=== PATIENT | female | born 1935 | race Caucasian/White ===

== ENCOUNTER 2017-11-21 09:12 | Outpatient (CLI) | payer MEDICARE, BC ==
--- NOTE | 2017-11-21 11:00 | CT ---
CHEST CT SCAN WITH IV CONTRAST: Date: 11/21/17 HISTORY: 82-year-old female with follow-up pulmonary nodule. History of breast cancer and prior left mastectom y. COMPARISON: 10/31/16. FINDINGS: Status post left mastectomy changes. No mediastinal mass or adenopathy. Prominent left hemithorax and pleural calcifications. Right upper lobe pulmonary nodule measuring 0.8 x 1.0 cm, which is stable fr om the 10/31/16 study, but has increased in size when compared to the 05/04/14 study, at which time i t was approximately 0.5 x 0.6 cm. The left lower lobe pulmonary nodule measures 1.4 x 1.7 cm with lit tle change from the prior study, at which time it measured approximately 1.3 x 1.6 cm, but it is also increased in size when compared to the prior 05/04/14 study, at which time it was 0.9 x 1.2 cm. Smal l to moderate size hiatal hernia. Other scattered stable chronic lung changes. IMPRESSION: Right upper lobe and left lower lobe pulmonary nodules with very little change from the 10/31/16 stud y, but with definite increase in size when dating back to 05/04/14. Left-sided pleural calcifications . Status post left mastectomy. Small to moderate hiatal hernia. POS: MICHAEL
[2017-11-21] MEDS ORDERED: Iopamidol 370 76% 100 ML VIAL ONE (15:41)
== END 2017-11-21 09:13 | disposition home or self-care (01) ==
LOC: CT 09:12
PROVIDERS: ATTEND Internal Medicine
DX: R91.1 Solitary pulmonary nodule (principal); R91.8 Other nonspecific abnormal finding of lung field; K44.9 Diaphragmatic hernia without obstruction or gangrene
CPT/HCPCS: 71260

== ENCOUNTER 2018-03-25 13:04 | Outpatient (CLI) | payer MEDICARE, BC ==
--- NOTE | 2018-03-27 14:23 | MMO ---
RIGHT BREAST SCREENING MAMMOGRAM: INDICATION: History of left-sided mastectomy and right-sided breast reduction. COMPARISON: Prior exam dated 02/01/16. FINDINGS: The interpretation of this exam was assisted with computer-aided detection. The breast parenchyma is heterogeneously dense. There is a surgical clip within the right breast whi ch is stable. There are scattered benign-appearing calcifications. No suspicious mass, cluster of m icrocalcifications, or area of architectural distortion is evident. IMPRESSION: BI-RADS category 2 - benign. Recommend routine annual mammographic screening. BIRADS 2: Benign Finding(s) Routine annual screening mammography (for women over age 40) POS: COLBY
== END 2018-03-25 13:05 | disposition home or self-care (01) ==
LOC: SCSMAMMO 13:04
PROVIDERS: ATTEND Family Medicine
DX: Z12.31 Encounter for screening mammogram for malignant neoplasm of breast (principal)
CPT/HCPCS: 77067

== ENCOUNTER 2019-03-31 12:55 | Outpatient (CLI) | payer MEDICARE, BC ==
--- NOTE | 2019-03-31 14:37 | MMO ---
Bilateral MAMMO Bilat Screen [facility]. CLINICAL HISTORY: Patient is 83 years old and is seen for screening. The patient has no family history of breast cancer. The patient has a history of left Mastectomy - malignant. VIEWS: The views performed were: right craniocaudal and right mediolateral oblique. FILMS COMPARED: The present examination has been compared to prior imaging studies performed at [facility] on 01/28/2015, 02/01/2016, 03/22/2017 and 03/25/2018. This study has been interpreted with the assistance of computer-aided detection. MAMMOGRAM FINDINGS: There are scattered fibroglandular densities. Finding 1: There are benign appearing calcifications seen in the right breast. Finding remains unchanged from the prior study. Finding 2: There is a biopsy clip seen in the right breast. Finding remains unchanged from the prior study. There are no new suspicious masses, calcifications or areas of architectural distortion. There are no suspicious masses, suspicious calcifications, or new areas of architectural distortion. IMPRESSION: THERE IS NO MAMMOGRAPHIC EVIDENCE OF MALIGNANCY. A ROUTINE FOLLOW-UP MAMMOGRAM IN 1 YEAR IS RECOMMENDED. ACR BI-RADS Category 2 - Benign finding MAMMOGRAPHY NOTE: 1. A negative mammogram report should not delay a biopsy if a dominant of clinically suspicious mass is present. 2. Approximately 10% to 15% of breast cancers are not detected by mammography. 3. Adenosis and dense breasts may obscure an underlying neoplasm.
== END 2019-03-31 12:56 | disposition home or self-care (01) ==
LOC: SCSMAMMO 12:55
PROVIDERS: ATTEND Family Medicine
DX: Z12.31 Encounter for screening mammogram for malignant neoplasm of breast (principal); Z85.3 Personal history of malignant neoplasm of breast; Z90.12 Acquired absence of left breast and nipple
CPT/HCPCS: 77067

== ENCOUNTER 2020-01-08 07:56 | Outpatient (CLI) | payer MEDICARE, BC ==
--- NOTE | 2020-01-08 12:28 | CT ---
CT OF THE ABDOMEN AND PELVIS WITH CONTRAST: COMPARISON: 08/12/2016. HISTORY: Diverticulitis flare-up with abdominal pain for weeks. TECHNIQUE: Multiple contiguous axial images were obtained in a CT of the abdomen and pelvis with contrast. P.o. contrast was administered. Sagittal and coronal reformats were performed. FINDINGS: The liver, gallbladder, kidneys, adrenal glands, spleen, and pancreas are unremarkable. No free air, free fluid, or stranding changes are seen in the abdomen or pelvis. Scattered diverticu la are seen in the colon. The small bowel is unremarkable. The reproductive organs are unremarkable. No abdominal or pelvic lymphadenopathy. Atherosclerotic c alcifications are seen in the aorta. Degenerative changes are seen in the spine. There are calcifie d pleural plaques in the left thorax. The patient has no left rectus abdominus musculature and the l eft breast has been reconstructed with a flap likely representing a tram flap. IMPRESSION: Diverticulosis without evidence of acute diverticulitis. POS: [facility]
== END 2020-01-08 07:57 | disposition home or self-care (01) ==
LOC: SCSCT 07:56
PROVIDERS: ATTEND Family Medicine
DX: K57.30 Diverticulosis of large intestine without perforation or abscess without bleeding (principal)
CPT/HCPCS: 74177; 82565